=== PATIENT | male | born 1940 | race Caucasian/White ===

== ENCOUNTER → 2020-04-29 | Outpatient (CLI) | payer MEDICARE, BC ==
[~2020-04-29] MED LIST: ASPIRIN 32325 MG/TAB PO; BETIMOL 0.5% OPH5 ML OP; COSOPT EYE DROPS5 ML OP; FISH OIL500 MG PO; IBUPROFEN200 M1 PO
== END ==
LOC: COL.LAB 08:35
DX: Z20.828 Contact with and (suspected) exposure to other viral communicable diseases (principal)

== ENCOUNTER → 2020-06-29 | Outpatient (CLI) | payer MEDICARE, BC | LOC: ZCOL.LAB 13:19 | DX: Z20.828 Contact with and (suspected) exposure to other viral communicable diseases (principal) ==